=== PATIENT | male | born 1935 | race Caucasian/White ===

== ENCOUNTER 2017-02-07 11:04 | Observation (INO) | payer MEDICARE ==
[~2017-02-07] VITALS: Ht 167.6 cm; Wt 72.0 kg
[2017-02-07] MEDS: SODIUM CHLORIDE 0.9% 1,000 ML IV SCH ×2 (12:08→20:08)
[2017-02-07 12:09] VITALS: BP 173/93
[2017-02-07] MEDS ORDERED: MIDAZOLAM 1 MG/ML, 5ML ONE (12:16)
[2017-02-07] MEDS ORDERED: FENTANYL PF 100 MCG/2ML ONE (12:16)
[2017-02-07] MEDS ORDERED: LIDOCAINE 2%, 20ML ONE (12:17)
[2017-02-07] MEDS ORDERED: CEFAZOLIN PMX 1GM/50ML 50 ML IVPB ONE (12:30)
[2017-02-07] MEDS ORDERED: PLEASE ENTER HEIGHT AND WEIGHT MC SCH (12:30)
[2017-02-07] MEDS ORDERED: no medications (12:43)
[2017-02-07] MEDS ORDERED: CEFAZOLIN 1,000 MG ONE (13:13)
[2017-02-07] MEDS ORDERED: CEFAZOLIN PMX 1GM/50ML 50 ML ONE (13:13)
[2017-02-07] MEDS ORDERED: ONDANSETRON 2MG/ML, 2ML IV PRN (14:30)
[2017-02-07] MEDS ORDERED: ZOLPIDEM 5MG TABLET PO PRN (14:30)
[2017-02-07] MEDS ORDERED: ACETAMINOPHEN 325 MG TABLET PO PRN (14:30)
[2017-02-07] MEDS ORDERED: HYDROcodone/APAP 5/325 TABLET PO PRN (14:30)
[2017-02-07 15:30] VITALS: BP 132/77
[2017-02-07 18:55] VITALS: BP 113/71
[2017-02-07] MEDS: SODIUM CHLORIDE FLUSH 10ML SYR IVF SCH (22:10)
[2017-02-07] MEDS: CEFAZOLIN PMX 1GM/50ML 50 ML IVPB SCH (22:10)
[2017-02-08 02:05] VITALS: BP 131/78
[2017-02-08] MEDS: SODIUM CHLORIDE 0.9% 1,000 ML IV SCH (04:08)
[2017-02-08] MEDS: CEFAZOLIN PMX 1GM/50ML 50 ML IVPB SCH (05:39)
[2017-02-08 07:43] VITALS: BP 139/83
[2017-02-08] MEDS ORDERED: ACET325T14 PO (08:21)
[2017-02-08] MEDS: SODIUM CHLORIDE FLUSH 10ML SYR IVF SCH (08:55)
== END 2017-02-08 10:39 | disposition home or self-care (01) ==
LOC: CACL 11:04 → ORIP 14:29 → 5SO 15:59 → DCLOUNGE 02-08 10:30
PROVIDERS: ADMIT Internal Medicine Cardiovascular Disease; ATTEND Internal Medicine Cardiovascular Disease
DX: I44.1 Atrioventricular block, second degree (principal); I49.5 Sick sinus syndrome
CPT/HCPCS: 33208; 71010; 96365; 96375; 99156; 99157; C1779; C1785; C1892; G0378; J0690; J2250; J3010; J3490